=== PATIENT | female | born 1935 | race Caucasian/White ===

== ENCOUNTER → 2017-06-01 | Outpatient (CLI) | payer MEDICARE | END | disposition home or self-care (01) | LOC: RAH 10:22 | PROVIDERS: ATTEND Internal Medicine | DX: Z12.31 Encounter for screening mammogram for malignant neoplasm of breast (principal) | CPT/HCPCS: 77067 ==

== ENCOUNTER → 2018-03-17 | Outpatient (CLI) | payer MEDICARE | END | disposition home or self-care (01) | LOC: SHCH 12:39 | PROVIDERS: ATTEND Internal Medicine Cardiovascular Disease | DX: R55 Syncope and collapse (principal) | CPT/HCPCS: 93306 ==

== ENCOUNTER 2018-04-26 10:36 | Emergency (ER) | payer MEDICARE ==
[2018-04-26] MEDS ORDERED: ONDANSETRON ODT 4 MG TAB ONE (11:01)
[2018-04-26] MEDS ORDERED: MORPHINE SULFATE 4 MG/1ML SYG ONE (11:02)
== END 2018-04-26 11:47 | disposition home or self-care (01) ==
LOC: EDH 10:36
DX: M54.5 Low back pain (principal); E78.5 Hyperlipidemia, unspecified; M19.90 Unspecified osteoarthritis, unspecified site; Z88.0 Allergy status to penicillin; Z90.710 Acquired absence of both cervix and uterus
CPT/HCPCS: 96372; 99283; J2270

== ENCOUNTER 2018-06-07 05:39 | Day surgery (SDC) | payer MEDICARE ==
[2018-06-02 13:46] LABS: EOSINOPHILS % (AUTO) 2.4 % (0.0-8.0); HEMATOCRIT 37.1 % (36-48); LYMPHOCYTES % (AUTO) 21.3 % (21.0-51.0); MEAN CORPUSCULAR HEMOGLOBIN 29.8 pg (27.0-33.0); MEAN CORPUSCULAR VOLUME 90.2 fL (79-99); MONOCYTES % (AUTO) 10.5 % (3.0-13.0); NEUTROPHILS % (AUTO) 64.8 % (40.0-77.0); NUCLEATED RED BLOOD CELLS 0.1 % (0.0-0.19); PLATELET COUNT (AUTO) 298 K/uL (130-400); RED BLOOD CELL COUNT(AUTO) 4.11 MIL/uL (4.00-5.50); RED CELL DISTRIBUTION WIDTH 14.1 % (11.0-15.5); WHITE BLOOD COUNT (AUTO) 6.3 K/uL (4.8-10.8)
[2018-06-02 13:55] VITALS: BP 117/63
[2018-06-02 13:55] LABS: CREATININE 0.8 mg/dL (0.5-1.5); POTASSIUM 4.9 mmol/L (3.5-5.1)
[~2018-06-07] VITALS: Ht 157.5 cm; Wt 51.5 kg
[2018-06-07] VITALS (15 sets, daily range): BP systolic 127–147; BP diastolic 57–88
[~2018-06-07 05:39] MED LIST: ASCO500C18 PO; B2/V1TAB PO; BIOT5000 PO; CALC-190 PO; CYAN10009 PO; FIBERCON PO; IRON PO; LUTE20CA PO; MAGN250T10 PO; OMEP40CA37 PO; POLY17PO29 PO; PROP10DR5 OU; SIMV20TA6 PO; [UNRECOGNIZED DRUG - CODE] PO
[2018-06-07] MEDS: CLINDAMYCIN 900 MG/D5% WATER 50 ML IV SCH ×2 (06:00→08:05)
[2018-06-07] MEDS ORDERED: LACTATED RINGERS 1000ML 1,000 ML IV ONE (06:11)
[2018-06-07] MEDS ORDERED: BUPIVACAINE/EPI/PF 0.25% 50 ML VIAL ONE (06:40)
[2018-06-07] MEDS ORDERED: LIDOCAINE HCL 1% MDV 50ML VIAL ONE (06:40)
[2018-06-07] MEDS ORDERED: PROPOFOL 10 MG/ML 20ML VIAL IV ONE (07:00)
[2018-06-07] MEDS ORDERED: DEXAMETHASONE SOD PHOSPHATE 10MG/ML 1ML VIAL ONE (07:00)
[2018-06-07] MEDS ORDERED: LIDOCAINE PF 2% 5ML ABBOJECT ONE (07:00)
[2018-06-07] MEDS ORDERED: ONDANSETRON HCL 4 MG/2 ML VIAL ONE (07:00)
[2018-06-07] MEDS ORDERED: MIDAZOLAM HCL 1 MG/ML 2ML VIAL ONE (07:00)
[2018-06-07] MEDS ORDERED: FENTANYL CITRATE PF 50 MCG/1 ML 2ML VIAL ONE ×3 (07:01→11:59)
--- NOTE | 2018-06-07 09:35 | NUR ---
ASSESSMENT RECEIVED PT FROM PACU STAFF [facility]. PT DOING WELL. DENIES ANY DISCOMFORT. PT INSTRUCTED ON BED REST FOR 3 HOURS. PT VERBALIZED UNDERSTANDING. OFFERED BEDPAN IF REQUIRING TO VOID. BAND AIDS X2 TO BACK SOFT TO TOUCH. NO BLEEDING, OOZING NOTED TO SITE. Addendum: 06/07/18 at 1508 by JAIRO GIBSON RN RN PT HAS BEEN LYING FLAT FOR 30 MINUTES ALREADY.
--- NOTE | 2018-06-07 09:50 | NUR ---
SITE CHECK SITE CHECK TO BACK SOFT TO TOUCH. NO BLEEDING, OOZING NOTED TO SITE.
[2018-06-07] MEDS ORDERED: EPHEDRINE SULFATE 50 MG/ML AMPULE ONE (09:53)
--- NOTE | 2018-06-07 10:15 | NUR ---
SITE CHECK SITE CHECK TO BACK SOFT TO TOUCH. NO BLEEDING, OOZING NOTED TO SITE.
--- NOTE | 2018-06-07 10:30 | NUR ---
SITE CHECK SITE CHECK TO BACK SOFT TO TOUCH. NO BLEEDING, OOZING NOTED TO SITE.
--- NOTE | 2018-06-07 10:45 | NUR ---
SITE CHECK SITE CHECK TO BACK SOFT TO TOUCH. NO BLEEDING, OOZING NOTED TO SITE.
--- NOTE | 2018-06-07 11:00 | NUR ---
SITE CHECK SITE CHECK TO BACK SOFT TO TOUCH. NO BLEEDING, OOZING NOTED TO SITE.
--- NOTE | 2018-06-07 11:30 | NUR ---
SITE CHECK SITE CHECK TO BACK SOFT TO TOUCH. NO BLEEDING, OOZING NOTED TO SITE.
--- NOTE | 2018-06-07 11:50 | NUR ---
DISCHARGE ORAL AND WRITTEN DISCHARGE INSTRUCTIONS GIVEN TO PT AND PTS . BOTH VERBALIZED UNDERSTANDING. INSTRUCTIONS GIVEN TO PT TO FOLLOW DR. SHELLI LYNNE. VERBALIZED UNDERSTANDING.
--- NOTE | 2018-06-07 12:00 | NUR ---
SITE CHECK SITE CHECK TO BACK SOFT TO TOUCH. NO BLEEDING, OOZING NOTED TO SITE.
== END 2018-06-07 12:15 | disposition home or self-care (01) ==
LOC: DAH 05:39
PROVIDERS: ATTEND Neurological Surgery
DX: S22.088A Other fracture of T11-T12 vertebra, initial encounter for closed fracture (principal); X58.XXXA Exposure to other specified factors, initial encounter; Y93.9 Activity, unspecified; Y92.89 Other specified places as the place of occurrence of the external cause; Y99.9 Unspecified external cause status; M54.5 Low back pain; E78.5 Hyperlipidemia, unspecified; Z79.899 Other long term (current) drug therapy; Z88.0 Allergy status to penicillin; Z90.710 Acquired absence of both cervix and uterus; Z83.3 Family history of diabetes mellitus
CPT/HCPCS: 22511; 36415; 76000; 80048; 85025; C1776; C1887; J1100; J2001; J2250; J2405; J2704; J3010; J3490 ×3; J7120

== ENCOUNTER → 2018-06-21 | Outpatient (CLI) | payer MEDICARE | END | disposition home or self-care (01) | LOC: RAH 09:47 | PROVIDERS: ATTEND Internal Medicine | DX: Z12.31 Encounter for screening mammogram for malignant neoplasm of breast (principal) | CPT/HCPCS: 77067 ==

== ENCOUNTER → 2018-08-28 | Outpatient (CLI) | payer MEDICARE | END | disposition home or self-care (01) | LOC: OIH 11:18 | PROVIDERS: ATTEND Neurological Surgery | DX: M84.48XA Pathological fracture, other site, initial encounter for fracture (principal); M47.816 Spondylosis without myelopathy or radiculopathy, lumbar region; M85.88 Other specified disorders of bone density and structure, other site; M48.07 Spinal stenosis, lumbosacral region | CPT/HCPCS: 72100 ==

== ENCOUNTER → 2018-11-14 | Outpatient (CLI) | payer MEDICARE ==
[~2018-11-14] MED LIST changes: +CYAN-52 PO; -CYAN10009 PO
== END | disposition home or self-care (01) ==
LOC: RAH 13:21
PROVIDERS: ATTEND Internal Medicine
DX: Z13.6 Encounter for screening for cardiovascular disorders (principal); I65.22 Occlusion and stenosis of left carotid artery
CPT/HCPCS: 93880

== ENCOUNTER → 2019-08-31 | Outpatient (CLI) | payer MEDICARE ==
[~2019-08-31] MED LIST changes: +OMEP40CA13 PO; -OMEP40CA37 PO; +SIMV-43 PO; -SIMV20TA6 PO
== END | disposition home or self-care (01) ==
LOC: RAH 11:26
PROVIDERS: ATTEND Internal Medicine
DX: J47.9 Bronchiectasis, uncomplicated (principal); J98.11 Atelectasis; M40.294 Other kyphosis, thoracic region; M47.814 Spondylosis without myelopathy or radiculopathy, thoracic region; R91.8 Other nonspecific abnormal finding of lung field
CPT/HCPCS: 71250

== ENCOUNTER 2019-12-07 09:13 | Day surgery (SDC) | payer MEDICARE ==
[~2019-12-07 09:13] MED LIST changes: +LEVOFLOXACIN 250 MG/D5W 50ML 50 ML IV SCH
[2019-12-07 10:54] LABS: HEMATOCRIT 37.2 % (36-48); MEAN CORPUSCULAR HEMOGLOBIN 28.7 pg (27.0-33.0); MEAN CORPUSCULAR HGB CONC 31.5 g/dL (32.0-36.0); MEAN CORPUSCULAR VOLUME 91.2 fL (79-99); PLATELET COUNT (AUTO) 360 K/uL (130-400); RED BLOOD CELL COUNT(AUTO) 4.08 MIL/uL (4.00-5.50); RED CELL DISTRIBUTION WIDTH 14.5 % (11.0-15.5); WHITE BLOOD COUNT (AUTO) 8.8 K/uL (4.8-10.8)
[2019-12-07 11:06] LABS: INR 0.93 (0.85-1.15); PARTIAL THROMBOPLASTIN TIME 25.4 SEC (26.3-35.5); PROTHROMBIN TIME 10.1 SEC (9.6-11.6)
--- NOTE | 2019-12-07 12:15 | NUR ---
LEFT LUNG BIOPSY LEFT LUNG BIOPSY DONE BY DR. YAÑEZ, PT RICKEY WELL. NO ADVERSE REACTIONS NOTED. DRESSING APPLIED TO SITE POST PROCEDURE. SPECIMEN SEND TO LAB. PATIENT PENDING CHEST XRAY AT 1300, REPORT GIVEN TO ANTONIO SHAH RN . PATIENT TO RECOVER FOR 3 HRS AND DC HOME LATER THIS PM IF STABLE. .
[2019-12-07 12:53] LABS: EOSINOPHILS % (MANUAL) 1 % (1-6); LYMPHOCYTES % (MANUAL) 11 % (22-44); MONOCYTES % (MANUAL) 5 % (2-9); SEGMENTED NEUTROPHILS % 83 % (40-70)
[2019-12-07 12:54] LABS: MAN.DIFF COMMENT-IMPRESSION MANUAL DIF; PLATELET MORPHOLOGY COMMENT ADEQUATE
== END 2019-12-07 15:00 | disposition home or self-care (01) ==
LOC: DAH 09:13
PROVIDERS: ATTEND Urology
DX: R91.8 Other nonspecific abnormal finding of lung field (principal); C34.32 Malignant neoplasm of lower lobe, left bronchus or lung; K21.9 Gastro-esophageal reflux disease without esophagitis; Z79.01 Long term (current) use of anticoagulants; Z79.899 Other long term (current) drug therapy; Z88.0 Allergy status to penicillin
CPT/HCPCS: 32405; 36415; 71045; 77012; 85025; 85610; 85730; 88305; 88341; 88342; A4215 ×2; A4216; A4221; A4222; A4223 ×3; A4606; A4663; J1956

== ENCOUNTER 2020-07-11 11:02 | Inpatient (IN) | payer MEDICARE ==
[~2020-07-11] VITALS: Ht 152.4 cm; Wt 52.5 kg
[~2020-07-11 11:02] MED LIST changes: -LEVOFLOXACIN 250 MG/D5W 50ML 50 ML IV SCH; -OMEP40CA13 PO; +OMEP40CA21 PO; -POLY17PO29 PO; +POLY17PO52 PO
[2020-07-11 11:39] LABS: BASOPHILS % (AUTO) 0.1 % (0.0-5.0); LYMPHOCYTES % (AUTO) 0.7 % (21.0-51.0); MEAN CORPUSCULAR HEMOGLOBIN 26.9 pg (27.0-33.0); MEAN CORPUSCULAR HGB CONC 30.9 g/dL (32.0-36.0); MEAN CORPUSCULAR VOLUME 87.2 fL (79-99); MONOCYTES % (AUTO) 4.5 % (3.0-13.0); NEUTROPHILS % (AUTO) 94.2 % (40.0-77.0); PLATELET COUNT (AUTO) 310 K/uL (130-400); RED CELL DISTRIBUTION WIDTH 14.6 % (11.0-15.5); WHITE BLOOD COUNT (AUTO) 10.8 K/uL (4.8-10.8)
[2020-07-11 11:43] LABS: POTASSIUM 3.7 mmol/L (3.5-5.1)
[2020-07-11 11:51] LABS: ALBUMIN 3.5 g/dL (3.5-5.0); BILIRUBIN,TOTAL 0.7 mg/dL (0.2-1.0); TOTAL PROTEIN, SERUM 6.5 g/dL (6.0-8.3)
[2020-07-11] MEDS ORDERED: ONDANSETRON 4MG INJ ONE (12:14)
[2020-07-11 12:57] LABS: APPEARANCE,URINE Clear (CLEAR); BILIRUBIN,URINE Negative (NEGATIVE); COLOR,URINE Dark Yellow (YELLOW); GLUCOSE, URINE (UA) Negative (NEGATIVE); KETONES,URINE Trace mg/dL (NEGATIVE); LEUKOCYTE ESTERASE ,URINE Trace (NEGATIVE); NITRATE,URINE Negative (NEGATIVE); OCCULT BLOOD,URINE Negative (NEGATIVE); PH,URINE 6.5 (5.0-8.0); PROTEIN,URINE POS 1+ mg/dL (NEGATIVE)
[2020-07-11 13:02] LABS: BACTERIA,URINE Rare /HPF (None Seen); RBC,URINE 0-1 /HPF (0-1); SQUAMOUS EPITHELIAL CELL,UR Rare /HPF (0-2)
[2020-07-11] MEDS ORDERED: 0.9%NACL 1000ML 1,000 ML IV SCH (13:30)
[2020-07-11] MEDS ORDERED: ACETAMINOPHEN 325 MG TAB PO PRN (13:30)
[2020-07-11] MEDS: LACTATED RINGERS 1000ML 1,000 ML IV SCH (15:30)
[2020-07-11] MEDS ORDERED: LACTATED RINGERS 1000ML 1,000 ML IV ONE (15:59)
[2020-07-11] MEDS ORDERED: [UNRECOGNIZED DRUG - REMARK] MISC SCH (16:00)
[2020-07-11] MEDS ORDERED: PHARMACY COMMUNICATION MISC SCH (16:45)
[2020-07-11] MEDS: LEVOFLOXACIN 500 MG/D5W 100 ML 100 ML IV SCH (19:00)
[2020-07-11] MEDS ORDERED: LEVOFLOXACIN 500 MG/D5W 100 ML 100 ML ONE (19:56)
[2020-07-11] MEDS ORDERED: FAMOTIDINE 20MG VIAL IV ONE (20:11)
[2020-07-11] MEDS: FAMOTIDINE 20MG VIAL IV SCH (21:00)
[2020-07-11] MEDS: METRONIDAZOLE 500MG/100ML BAG 100 ML IVPB SCH (22:00)
[2020-07-11] MEDS ORDERED: METRONIDAZOLE 500MG/100ML BAG 100 ML ONE (22:07)
[2020-07-11 22:35] VITALS: BP 94/49
[2020-07-11] MEDS ORDERED: LOPERAMIDE HCL 2 MG CAP PO ONE (23:51)
[2020-07-11] MEDS ORDERED: SIMETHICONE 80 MG TAB.CHEW ONE (23:51)
[2020-07-12] MEDS ORDERED: SIMETHICONE 80 MG TAB.CHEW PO PRN
[2020-07-12] MEDS ORDERED: MIDO2.5T PO (00:49)
[2020-07-12] MEDS ORDERED: AEC81 PO (00:49)
[2020-07-12] MEDS: ONDANSETRON 4MG INJ IV PRN (01:30)
[2020-07-12 04:00] VITALS: BP 102/54
[2020-07-12] MEDS: LACTATED RINGERS 1000ML 1,000 ML IV SCH ×2 (06:19→18:10)
[2020-07-12] MEDS: METRONIDAZOLE 500MG/100ML BAG 100 ML IVPB SCH ×3 (06:19→21:06)
[2020-07-12 07:00] VITALS: BP 91/46
[2020-07-12] MEDS: FAMOTIDINE 20MG VIAL IV SCH ×2 (09:44→21:06)
[2020-07-12] MEDS: ENOXAPARIN SODIUM 30 MG/0.3 ML SQ SCH (09:45)
[2020-07-12 10:48] LABS: BASOPHILS % (AUTO) 0.2 % (0.0-5.0); EOSINOPHILS % (AUTO) 2.6 % (0.0-8.0); HEMATOCRIT 26.1 % (36-48); LYMPHOCYTES % (AUTO) 7.7 % (21.0-51.0); MEAN CORPUSCULAR HEMOGLOBIN 28.1 pg (27.0-33.0); MEAN CORPUSCULAR HGB CONC 32.2 g/dL (32.0-36.0); MEAN CORPUSCULAR VOLUME 87.3 fL (79-99); MONOCYTES % (AUTO) 5.5 % (3.0-13.0); NEUTROPHILS % (AUTO) 83.8 % (40.0-77.0); PLATELET COUNT (AUTO) 179 K/uL (130-400); RED BLOOD CELL COUNT(AUTO) 2.99 MIL/uL (4.00-5.50); WHITE BLOOD COUNT (AUTO) 5.1 K/uL (4.8-10.8)
[2020-07-12 11:01] LABS: CREATININE 0.8 mg/dL (0.5-1.5); POTASSIUM 3.6 mmol/L (3.5-5.1)
[2020-07-12 11:30] VITALS: BP 94/51
[2020-07-12] MEDS ORDERED: MAGN250T10 PO (12:07)
[2020-07-12] MEDS ORDERED: LORA0.5T83 PO (12:07)
[2020-07-12] MEDS ORDERED: VITAMIN D (12:07)
[2020-07-12] MEDS ORDERED: DENO60DI SQ (12:07)
[2020-07-12] MEDS ORDERED: OSIM80TA PO (12:07)
[2020-07-12] MEDS ORDERED: ALEN70TA80 PO (12:07)
[2020-07-12] MEDS ORDERED: MIDODRINE HCL 5 MG TABLET PO PRN (12:45)
[2020-07-12] MEDS ORDERED: SIMVASTATIN 20 MG TABLET PO SCH (12:45)
[2020-07-12 13:05] LABS: MYOGLOBIN 257 ng/mL (10-92); TROPONIN I < 0.04 ng/mL (0.00-0.06)
[2020-07-12 13:08] LABS: CREATINE KINASE, TOTAL 570 U/L (21-232)
[2020-07-12] MEDS: PROPYLENE GLYCOL OU SCH ×2 (14:00→21:00)
[2020-07-12] MEDS: PEG OU SCH ×2 (14:00→21:00)
[2020-07-12] MEDS ORDERED: LOPERAMIDE HCL 2 MG CAP PO PRN ×3 (14:45→15:00)
[2020-07-12] MEDS ORDERED: PROCHLORPERAZINE 10MG/2ML INJ IV PRN (15:00)
[2020-07-12] MEDS ORDERED: DIPHENOXYLATE HCL/ATROPINE 2.5/0.025 MG TAB PO ONE (15:00)
[2020-07-12 16:09] VITALS: BP 106/56
[2020-07-12] MEDS: LEVOFLOXACIN 500 MG/D5W 100 ML 100 ML IV SCH (18:38)
[2020-07-12 20:05] VITALS: BP 96/56
[2020-07-12] MEDS: DIPHENOXYLATE HCL/ATROPINE 2.5/0.025 MG TAB PO PRN (22:49)
[2020-07-13] VITALS: BP 104/55
[2020-07-13] MEDS: LACTATED RINGERS 1000ML 1,000 ML IV SCH (01:08)
[2020-07-13] MEDS ORDERED: TEMAZEPAM 15 MG CAPSULE ONE ×2 (01:21→22:22)
[2020-07-13 04:00] VITALS: BP 134/67
[2020-07-13] MEDS: METRONIDAZOLE 500MG/100ML BAG 100 ML IVPB SCH ×3 (07:34→21:01)
[2020-07-13 07:49] LABS: HEMATOCRIT 26.1 % (36-48); MEAN CORPUSCULAR HEMOGLOBIN 27.8 pg (27.0-33.0); MEAN CORPUSCULAR HGB CONC 32.6 g/dL (32.0-36.0); MEAN CORPUSCULAR VOLUME 85.3 fL (79-99); RED BLOOD CELL COUNT(AUTO) 3.06 MIL/uL (4.00-5.50); RED CELL DISTRIBUTION WIDTH 15.3 % (11.0-15.5); WHITE BLOOD COUNT (AUTO) 3.1 K/uL (4.8-10.8)
[2020-07-13] MEDS: ASCORBIC ACID 500 MG TAB PO SCH (08:10)
[2020-07-13] MEDS: ASPIRIN 81 MG EC TAB PO SCH (08:10)
[2020-07-13] MEDS: FAMOTIDINE 20MG VIAL IV SCH ×2 (08:11→21:01)
[2020-07-13] MEDS: ENOXAPARIN SODIUM 30 MG/0.3 ML SQ SCH (08:11)
[2020-07-13] MEDS: LORAZEPAM 0.5 MG TABLET PO SCH (08:11)
[2020-07-13] MEDS: CYANOCOBALAMIN (VITAMIN B-12) 1,000 MCG TABLET PO SCH (08:11)
[2020-07-13] MEDS: CA 600MG+VIT D 400 UNIT TAB 1 TAB TABLET PO SCH (08:11)
[2020-07-13 08:23] LABS: CREATININE 0.7 mg/dL (0.5-1.5); POTASSIUM 3.3 mmol/L (3.5-5.1)
[2020-07-13 08:56] VITALS: BP 113/57
[2020-07-13] MEDS ORDERED: OSIMERTINIB MESYLATE 80 MG PO SCH (09:00)
[2020-07-13] MEDS: PROPYLENE GLYCOL OU SCH ×3 (09:00→21:00)
[2020-07-13] MEDS ORDERED: PANTOPRAZOLE 40 MG TAB DR PO SCH (09:00)
[2020-07-13] MEDS: VITAMIN D 25 MCG PO SCH (09:00)
[2020-07-13] MEDS ORDERED: MAGNESIUM OXIDE 250 MG PO SCH ×2 (09:00)
[2020-07-13] MEDS: [UNRECOGNIZED DRUG - OTHER] PO SCH (09:00)
[2020-07-13] MEDS: LECITHIN 1200 MG PO SCH (09:00)
[2020-07-13] MEDS: **HM**(Biotin 5,000 MCG PO SCH (09:00)
[2020-07-13] MEDS: PEG OU SCH ×3 (09:00→21:00)
[2020-07-13] MEDS: LUTEIN 20 MG PO SCH (11:07)
[2020-07-13 11:51] VITALS: BP 115/59
[2020-07-13] MEDS ORDERED: KCL 20 MEQ ERTAB PO SCH ×2 (14:15→14:45)
[2020-07-13 15:41] VITALS: BP 123/65
[2020-07-13] MEDS: DIPHENOXYLATE HCL/ATROPINE 2.5/0.025 MG TAB PO PRN (18:00)
[2020-07-13] MEDS: LEVOFLOXACIN 500 MG/D5W 100 ML 100 ML IV SCH (18:02)
[2020-07-13 20:00] VITALS: BP 118/64
[2020-07-13] MEDS: GUAIFENESIN-CODEINE 5 ML SYRUP PO SCH (20:15)
[2020-07-13] MEDS: 0.9%NACL 1000ML 1,000 ML IV SCH (20:15)
[2020-07-13] MEDS: ONDANSETRON 4MG INJ IV PRN (21:01)
[2020-07-13] MEDS ORDERED: TEMAZEPAM 15 MG CAPSULE PO PRN (21:30)
[2020-07-14] VITALS (7 sets, daily range): BP systolic 110–136; BP diastolic 56–72
[2020-07-14] MEDS: GUAIFENESIN-CODEINE 5 ML SYRUP PO SCH ×4 (02:15→20:15)
[2020-07-14 05:18] LABS: HEMATOCRIT 26.4 % (36-48); MEAN CORPUSCULAR HEMOGLOBIN 27.5 pg (27.0-33.0); MEAN CORPUSCULAR HGB CONC 32.2 g/dL (32.0-36.0); MEAN CORPUSCULAR VOLUME 85.4 fL (79-99); RED BLOOD CELL COUNT(AUTO) 3.09 MIL/uL (4.00-5.50); RED CELL DISTRIBUTION WIDTH 15.5 % (11.0-15.5); WHITE BLOOD COUNT (AUTO) 4.9 K/uL (4.8-10.8)
[2020-07-14] MEDS: METRONIDAZOLE 500MG/100ML BAG 100 ML IVPB SCH ×3 (05:50→21:45)
[2020-07-14] MEDS: 0.9%NACL 1000ML 1,000 ML IV SCH ×2 (05:53→21:45)
[2020-07-14 06:14] LABS: ALBUMIN 2.4 g/dL (3.5-5.0); BILIRUBIN,TOTAL 0.3 mg/dL (0.2-1.0); CREATININE 0.6 mg/dL (0.5-1.5); CRP QUANTITATIVE 33.7 mg/L (0.00-9.0); POTASSIUM 3.7 mmol/L (3.5-5.1)
[2020-07-14] MEDS: [UNRECOGNIZED DRUG - OTHER] PO SCH (09:00)
[2020-07-14] MEDS: VITAMIN D 25 MCG PO SCH (09:00)
[2020-07-14] MEDS: PROPYLENE GLYCOL OU SCH ×3 (09:00→20:35)
[2020-07-14] MEDS: LECITHIN 1200 MG PO SCH (09:00)
[2020-07-14] MEDS: **HM**(Biotin 5,000 MCG PO SCH (09:00)
[2020-07-14] MEDS: PEG OU SCH ×3 (09:00→20:35)
[2020-07-14] MEDS: CA 600MG+VIT D 400 UNIT TAB 1 TAB TABLET PO SCH (09:47)
[2020-07-14] MEDS: LORAZEPAM 0.5 MG TABLET PO SCH (09:47)
[2020-07-14] MEDS: ASCORBIC ACID 500 MG TAB PO SCH (09:47)
[2020-07-14] MEDS: ASPIRIN 81 MG EC TAB PO SCH (09:47)
[2020-07-14] MEDS: CYANOCOBALAMIN (VITAMIN B-12) 1,000 MCG TABLET PO SCH (09:48)
[2020-07-14] MEDS: FAMOTIDINE 20MG VIAL IV SCH ×2 (09:48→20:32)
[2020-07-14] MEDS: ENOXAPARIN SODIUM 30 MG/0.3 ML SQ SCH (09:55)
[2020-07-14] MEDS: LUTEIN 20 MG PO SCH (12:00)
[2020-07-14] MEDS: METOCLOPRAMIDE 10 MG TABLET PO SCH ×2 (18:40→20:32)
[2020-07-14] MEDS: LEVOFLOXACIN 500 MG/D5W 100 ML 100 ML IV SCH (18:40)
[2020-07-15] MEDS: GUAIFENESIN-CODEINE 5 ML SYRUP PO SCH ×3 (02:15→14:15)
[2020-07-15 03:49] VITALS: BP 109/79
[2020-07-15] MEDS: METRONIDAZOLE 500MG/100ML BAG 100 ML IVPB SCH ×2 (05:07→15:28)
[2020-07-15 05:57] LABS: BASOPHILS % (AUTO) 0.2 % (0.0-5.0); EOSINOPHILS % (AUTO) 3.7 % (0.0-8.0); HEMATOCRIT 28.5 % (36-48); LYMPHOCYTES % (AUTO) 12.6 % (21.0-51.0); MEAN CORPUSCULAR HEMOGLOBIN 27.5 pg (27.0-33.0); MEAN CORPUSCULAR HGB CONC 32.3 g/dL (32.0-36.0); MEAN CORPUSCULAR VOLUME 85.3 fL (79-99); MONOCYTES % (AUTO) 13.6 % (3.0-13.0); NEUTROPHILS % (AUTO) 69.4 % (40.0-77.0); PLATELET COUNT (AUTO) 184 K/uL (130-400); RED BLOOD CELL COUNT(AUTO) 3.34 MIL/uL (4.00-5.50); RED CELL DISTRIBUTION WIDTH 15.6 % (11.0-15.5); WHITE BLOOD COUNT (AUTO) 4.4 K/uL (4.8-10.8)
[2020-07-15 06:05] LABS: CREATININE 0.6 mg/dL (0.5-1.5); POTASSIUM 3.3 mmol/L (3.5-5.1)
[2020-07-15] MEDS: METOCLOPRAMIDE 10 MG TABLET PO SCH ×2 (06:25→12:50)
[2020-07-15 08:02] VITALS: BP 105/60
[2020-07-15] MEDS: LORAZEPAM 0.5 MG TABLET PO SCH (08:59)
[2020-07-15] MEDS: ASPIRIN 81 MG EC TAB PO SCH (08:59)
[2020-07-15] MEDS: FAMOTIDINE 20MG VIAL IV SCH (08:59)
[2020-07-15] MEDS: CYANOCOBALAMIN (VITAMIN B-12) 1,000 MCG TABLET PO SCH (08:59)
[2020-07-15] MEDS: CA 600MG+VIT D 400 UNIT TAB 1 TAB TABLET PO SCH (08:59)
[2020-07-15] MEDS: ASCORBIC ACID 500 MG TAB PO SCH (08:59)
[2020-07-15] MEDS: PROPYLENE GLYCOL OU SCH ×2 (09:00→14:00)
[2020-07-15] MEDS: **HM**(Biotin 5,000 MCG PO SCH (09:00)
[2020-07-15] MEDS: ENOXAPARIN SODIUM 30 MG/0.3 ML SQ SCH (09:00)
[2020-07-15] MEDS: [UNRECOGNIZED DRUG - OTHER] PO SCH (09:00)
[2020-07-15] MEDS: VITAMIN D 25 MCG PO SCH (09:00)
[2020-07-15] MEDS: PEG OU SCH ×2 (09:00→14:00)
[2020-07-15] MEDS: LECITHIN 1200 MG PO SCH (09:00)
[2020-07-15] MEDS ORDERED: KCL 20 MEQ ERTAB PO SCH (11:05)
[2020-07-15 12:00] VITALS: BP 103/60
[2020-07-15] MEDS: LUTEIN 20 MG PO SCH (12:00)
[2020-07-15] MEDS ORDERED: ONDA4TAB4 PO (12:14)
[2020-07-19] MEDS ORDERED: ALENDRONATE SODIUM 35 MG TAB PO SCH (09:00)
[2020-08-11] MEDS ORDERED: DENOSUMAB 60 MG SQ SCH (09:00)
== END 2020-07-15 15:45 | disposition home or self-care (01) | DRG 392 ==
LOC: EDH 11:02 → OBSVTOIN 13:29 → EDHIP 13:29 → 3CH 21:11
PROVIDERS: ADMIT Internal Medicine; ATTEND Internal Medicine
DX: A08.4 Viral intestinal infection, unspecified (principal); C34.90 Malignant neoplasm of unspecified part of unspecified bronchus or lung; E86.0 Dehydration; E78.5 Hyperlipidemia, unspecified; E87.6 Hypokalemia; I10 Essential (primary) hypertension; I95.9 Hypotension, unspecified; D72.829 Elevated white blood cell count, unspecified; Z20.822 Contact with and (suspected) exposure to COVID-19; Z83.3 Family history of diabetes mellitus; Z82.3 Family history of stroke; Z80.51 Family history of malignant neoplasm of kidney; Z88.0 Allergy status to penicillin
CPT/HCPCS: 36415; 70450; 71045; 74018; 74176; 80048; 80053; 81001; 82550; 83605; 83735; 83874; 84145; 84484; 85025; 85027; 85651; 86140; 87040; 87046; 87177; 87324; 87426; 87507; G0378; J1650; J1956; J2405; J3490; J7030; J7120; U0003

== ENCOUNTER → 2020-09-15 | Outpatient (CLI) | payer MEDICARE ==
[~2020-09-15] MED LIST changes: +AEC81 PO; +ALEN70TA80 PO; +DENO60DI SQ; -IRON PO; +LORA0.5T83 PO; +MIDO2.5T PO; +ONDA4TAB4 PO; +OSIM80TA PO; -POLY17PO52 PO; +VITAMIN D
[2020-09-15 11:07] LABS: CREATININE 0.7 mg/dL (0.5-1.5)
== END | disposition home or self-care (01) ==
LOC: RAH 10:11
PROVIDERS: ATTEND Otolaryngology Plastic Surgery within the Head & Neck
DX: J38.00 Paralysis of vocal cords and larynx, unspecified (principal)
CPT/HCPCS: 36415; 71046; 82565; 84520

== ENCOUNTER → 2020-10-01 | Outpatient (CLI) | payer MEDICARE ==
[~2020-10-01] MED LIST changes: +IOHEXOL-350 50ML VIAL IV ONE
== END | disposition home or self-care (01) ==
LOC: RAH 11:58
PROVIDERS: ATTEND Otolaryngology Plastic Surgery within the Head & Neck
DX: G31.89 Other specified degenerative diseases of nervous system (principal); I67.2 Cerebral atherosclerosis; I65.22 Occlusion and stenosis of left carotid artery; J38.00 Paralysis of vocal cords and larynx, unspecified
CPT/HCPCS: 70470; 76536; Q9967